=== PATIENT | female | born 1970 | race African-American/Black ===

== ENCOUNTER 2022-01-25 16:58 | Inpatient (IN) | payer MEDICARE ==
[~2022-01-25] VITALS: Ht 177.8 cm; Wt 117.1 kg
[2022-01-25 18:26] LABS: ARTERIAL BLD GAS O2 SATURATION 90.7 % (92-100); ARTERIAL BLD GAS TCO2 CT 24.2; ARTERIAL BLOOD GAS BASE EXCESS -2.1 (-2-2); ARTERIAL BLOOD GAS PCO2 40.4 mmHg (35-45); ARTERIAL BLOOD GAS PO2 64.5 mmHg (80-100); ARTERIAL BLOOD GAS pH 7.37 (7.35-7.45)
[2022-01-25 18:28] LABS: BASO # 0.1 K/mm3 (0.0-0.2); BASO % 1.4 % (0.0-2.0); EOS # 0.3 K/mm3 (0.0-0.7); EOS % 4.4 % (0.0-4.0); GRAN # 4.4 K/mm3 (1.4-6.5); LYMPH # 0.5 K/mm3 (1.2-3.4); LYMPH % 8.7 % (20.0-51.0); MEAN CELL VOLUME 88 fl (80.0-100.0); MEAN CORPUSCULAR HGB CONC 30 g/dl (33.0-37.0); MEAN PLATELET VOLUME 10.1 fl (7.4-10.4); MONO # 0.5 K/mm3 (0.1-0.6); MONO % 9.2 % (1.7-9.3); PLATELET COUNT 260 K/mm3 (130-400); RED BLOOD COUNT 2.71 M/mm3 (4.10-5.30); REDCELL DISTRIBUTION WIDTH-CV 22.5 % (11.5-14.5)
[2022-01-25 18:35] LABS: HEMATOCRIT 23.7 % (37.0-47.0); HEMOGLOBIN 7.1 g/dl (12.5-16.0); MEAN CORPUSCULAR HEMOGLOBIN 26 pg (27-31)
[2022-01-25 18:40] LABS: COLLECTION METHOD CLEAN CATCH
[2022-01-25 18:47] LABS: URINE APPEARANCE Clear (CLEAR/HAZY); URINE COLOR Yellow (YELLOW)
[2022-01-25 18:48] LABS: URINE BLOOD 1+ (NEGATIVE); URINE GLUCOSE Negative (NEGATIVE); URINE KETONE Negative (NEGATIVE); URINE NITRATE Negative (NEGATIVE); URINE PROTEIN(semi-quant) Negative (NEGATIVE); URINE UROBILINOGEN 0.2 E.U/dL (0.2-1.0)
[2022-01-25 18:49] LABS: SQUAMOUS EPITHELIAL 0-2 /hpf (0-10); URINE BACTERIA Rare /hpf (NONE SEEN)
[2022-01-25 18:54] LABS: ALBUMIN 1.7 gm/dL (3.5-5.0); BILIRUBIN,TOTAL 0.4 mg/dL (0.2-1.2); CREATININE, serum 2.4 mg/dL (0.57-1.11); POTASSIUM 4.1 mmol/L (3.5-4.5); TOTAL PROTEIN 6.4 gm/dL (6.2-8.1)
[2022-01-25 18:59] LABS: TROPONIN-I 0.018 ng/mL (0.00-0.033)
[2022-01-25 19:07] LABS: INR 1.6 (0.8-3.0)
[2022-01-25 22:17] VITALS: BP 117/80; PULSE 90; TEMP 97.6
[2022-01-25] MEDS ORDERED: TRADJENTA5 MG PO (22:45)
[2022-01-25] MEDS ORDERED: LANTUS100 U/ML SQ (22:45)
[2022-01-25] MEDS ORDERED: XIFAXAN550 MG PO (22:48)
[2022-01-25] MEDS ORDERED: LASIX 40MG TABL40 MG PO (22:49)
[2022-01-25] MEDS ORDERED: REQUIP0.25 MG PO (22:49)
[2022-01-25] MEDS ORDERED: K-DUR20 MEQ PO (22:53)
[2022-01-25] MEDS ORDERED: ZAROXOLYN 2.52.5 MG PO (22:54)
[2022-01-25] MEDS ORDERED: LIPITOR 40MG TA40 MG PO (22:54)
[2022-01-25] MEDS ORDERED: ULTRAM 50MG TAB50 MG PO (22:55)
[2022-01-25] MEDS ORDERED: HUMALOG100 U/ML SQ (22:56)
[2022-01-25] MEDS ORDERED: TYLENOL 500MG500 MG PO (22:57)
[2022-01-25] MEDS ORDERED: CLARITIN 1010 MG/TAB PO (22:59)
[2022-01-25] MEDS ORDERED: FLONASE NASAL S16 GM NS (23:03)
[2022-01-25] MEDS ORDERED: LOVENOX 100100 MG/ML SQ (23:04)
[2022-01-25] MEDS ORDERED: LOVENOX 3030 MG/0.3 SQ (23:05)
[2022-01-25 23:58] LABS: PARTIAL THROMBOPLASTIN TIME 40.3 SECONDS (26.0-37.0)
[2022-01-26 04:07] VITALS: BP 145/67; PULSE 90; TEMP 97.6
--- NOTE | 2022-01-26 04:19 | NUR ---
INITIAL HEP XA CAME BACK AT 1.75. PROVIDER (DEB) NOTIFIED. NO NEW ORDERS.
[2022-01-26 06:36] LABS: BASO # 0.1 K/mm3 (0.0-0.2); BASO % 1.2 % (0.0-2.0); EOS # 0.2 K/mm3 (0.0-0.7); EOS % 4.1 % (0.0-4.0); GRAN # 3.8 K/mm3 (1.4-6.5); GRAN % 74.7 % (42.2-75.2); LYMPH # 0.5 K/mm3 (1.2-3.4); LYMPH % 9.6 % (20.0-51.0); MEAN CELL VOLUME 91 fl (80.0-100.0); MEAN CORPUSCULAR HGB CONC 29 g/dl (33.0-37.0); MEAN PLATELET VOLUME 10.1 fl (7.4-10.4); MONO # 0.5 K/mm3 (0.1-0.6); MONO % 10.2 % (1.7-9.3); PLATELET COUNT 247 K/mm3 (130-400); RED BLOOD COUNT 2.59 M/mm3 (4.10-5.30); REDCELL DISTRIBUTION WIDTH-CV 22.1 % (11.5-14.5)
[2022-01-26 06:51] LABS: CALCIUM 7.8 mg/dL (8.4-10.2); CREATININE, serum 2.36 mg/dL (0.57-1.11)
[2022-01-26 06:54] LABS: HEMATOCRIT 23.5 % (37.0-47.0); HEMOGLOBIN 6.9 g/dl (12.5-16.0); MEAN CORPUSCULAR HEMOGLOBIN 27 pg (27-31)
[2022-01-26 09:16] VITALS: BP 137/74; PULSE 98; TEMP 97.8
[2022-01-26 11:55] VITALS: BP 137/76; PULSE 93; TEMP 97.2
--- NOTE | 2022-01-26 12:13 | NUR ---
PICC cancelled by Nephrology
[2022-01-26 15:01] LABS: PLEURAL FLUID RBC 1000 /mm3 (0-0); PLEURAL FLUID WBC 45 /mm3
[2022-01-26 15:02] LABS: PLEURAL FLUID APPEARANCE CLEAR; PLEURAL FLUID COLOR COLORLESS
--- NOTE | 2022-01-26 15:25 | NUR ---
Workflow Developer contacted Luis at [facility] and faxed clinical updates as patient was admitted from [facility]. Luis advised patient was admitted to their SNF facility for rehab on 01/19/22 from [facility]. Luis advised patient has [employer] despite patient showing up as self pay on the hospital census. KRISTEN updated Case Management and Financial Team via email. Luis advised they would accept back with Gena auth. KRISTEN met with patient to complete initial intake. It was difficult to assess for needs as patient was prepping to go down for a procedure and was anxious and tearful. Patient advised before her hospitalization at [facility], she lived in [place] with her , Nilesh (ph#[phone]). Patient advised her son, Billy is also very supportive. Patient does not have established Advance Directives. Patient would like to return to [facility] for continued rehab. Discharge Plan: [facility] SNF
[2022-01-26 15:43] VITALS: BP 139/68; PULSE 98; TEMP 98.3
[2022-01-26 16:34] LABS: HEMATOCRIT 24.3 % (37.0-47.0)
[2022-01-26 20:59] VITALS: BP 139/79; PULSE 100; TEMP 97.7
[2022-01-26 23:53] VITALS: BP 117/54; PULSE 96; TEMP 97.9
[2022-01-27] VITALS (12 sets, daily range): BP systolic 123–162; BP diastolic 61–101; PULSE 90–102; TEMP 97.6–98.5
--- NOTE | 2022-01-27 01:28 | NUR ---
OCCULT STOOL CAME BACK POSITIVE. NOTIFIED PROVIDER (DEB). ORDERS FOR GI CONSULT (WILL CALL IN THE AM) AND GAVE IV PROTONIX.
--- NOTE | 2022-01-27 06:10 | NUR ---
GI CONSULT CALLED TO DR. RUFF.
[2022-01-27 11:31] LABS: BASO # 0.1 K/mm3 (0.0-0.2); BASO % 0.8 % (0.0-2.0); EOS # 0.1 K/mm3 (0.0-0.7); EOS % 1.1 % (0.0-4.0); GRAN # 8.7 K/mm3 (1.4-6.5); GRAN % 88.6 % (42.2-75.2); LYMPH # 0.4 K/mm3 (1.2-3.4); LYMPH % 4.2 % (20.0-51.0); MEAN CELL VOLUME 88 fl (80.0-100.0); MEAN CORPUSCULAR HGB CONC 30 g/dl (33.0-37.0); MEAN PLATELET VOLUME 10.1 fl (7.4-10.4); MONO # 0.5 K/mm3 (0.1-0.6); MONO % 4.9 % (1.7-9.3); PLATELET COUNT 227 K/mm3 (130-400); RED BLOOD COUNT 2.49 M/mm3 (4.10-5.30); REDCELL DISTRIBUTION WIDTH-CV 22.2 % (11.5-14.5)
[2022-01-27 11:35] LABS: HEMOGLOBIN 6.5 g/dl (12.5-16.0); MEAN CORPUSCULAR HEMOGLOBIN 26 pg (27-31)
[2022-01-27 11:48] LABS: CALCIUM 7.7 mg/dL (8.4-10.2); CREATININE, serum 2.36 mg/dL (0.57-1.11); PHOSPHOROUS 5.3 mg/dL (2.3-4.7)
--- NOTE | 2022-01-27 13:05 | NUR ---
Dining Services Director faxed clinical updates to Luis at [facility]. KRISTEN then faxed clinicals to [facility] to start prior authorization request for SNF. KRISTEN contacted patient's , Nilesh who advised he wants patient to continue to get stronger so she can come home. Nilesh is in agreement with discharge plan to [facility] SNF.
--- NOTE | 2022-01-27 13:40 | NUR ---
Special Officer spoke with [facility] about discharge planning. Patient is not medically ready for discharge so authorization request was cancelled. SW to resubmit when closer to discharge.
[2022-01-27 13:41] LABS: PLEURAL FLUID RBC 0 /mm3 (0-0); PLEURAL FLUID WBC 137 /mm3
[2022-01-27 13:47] LABS: PLEURAL FLUID APPEARANCE CLEAR; PLEURAL FLUID COLOR COLORLESS
[2022-01-28] VITALS (10 sets, daily range): BP systolic 112–159; BP diastolic 54–81; PULSE 77–94; TEMP 97.5–98.7
--- NOTE | 2022-01-28 05:47 | NUR ---
PATIENT RESTED QUIETLY THIS SHIFT. PATIENT RECEIVED PRN ULTRAM AND TYLENOL FOR COMPLAINTS OF BACK AND NECK PAIN. PATIENT REPORTED THESE MEDICATIONS DID NOT HELP HER PAIN AND PATIENT STARTED ON PRN MORPHINE. PATIENT APPEARED TO REST MORE COMFORTABLY AFTER MORPHINE. PATIENT REMAINED ON ROOM AIR.
--- NOTE | 2022-01-28 10:45 | NUR ---
Print Decorator contacted Luis at [facility] and faxed clinical updates. KRISTEN collaborated with Hospitalist who advised patient is not near [place] at this time and could possibly be here through the weekend. KRISTEN will sumbit for auth closer to [place].
[2022-01-28 13:44] LABS: BASO # 0.1 K/mm3 (0.0-0.2); BASO % 1.1 % (0.0-2.0); EOS # 0.2 K/mm3 (0.0-0.7); EOS % 3.5 % (0.0-4.0); GRAN # 4.5 K/mm3 (1.4-6.5); GRAN % 81.7 % (42.2-75.2); LYMPH # 0.3 K/mm3 (1.2-3.4); MEAN CELL VOLUME 91 fl (80.0-100.0); MEAN CORPUSCULAR HGB CONC 29 g/dl (33.0-37.0); MEAN PLATELET VOLUME 9.7 fl (7.4-10.4); MONO # 0.4 K/mm3 (0.1-0.6); MONO % 7.3 % (1.7-9.3); PLATELET COUNT 213 K/mm3 (130-400); RED BLOOD COUNT 2.51 M/mm3 (4.10-5.30); REDCELL DISTRIBUTION WIDTH-CV 22.5 % (11.5-14.5)
[2022-01-28 13:45] LABS: INR 1.1 (0.8-3.0); PROTHROMBIN TIME 13.1 SECONDS (9.7-12.8)
[2022-01-28 13:46] LABS: HEMATOCRIT 22.8 % (37.0-47.0); MEAN CORPUSCULAR HEMOGLOBIN 26 pg (27-31)
[2022-01-28 13:48] LABS: HEMOGLOBIN 6.6 g/dl (12.5-16.0)
--- NOTE | 2022-01-28 13:55 | NUR ---
Primary nurse was assisted with [phone] patient care by [facility] [employer] student Kimberlee Mc and [employer] instructor Carol BHAGAT RN
[2022-01-28 13:56] LABS: ALBUMIN 1.5 gm/dL (3.5-5.0); BILIRUBIN,TOTAL 0.4 mg/dL (0.2-1.2); CALCIUM 7.6 mg/dL (8.4-10.2); CREATININE, serum 2.64 mg/dL (0.57-1.11); POTASSIUM 4.1 mmol/L (3.5-4.5); TOTAL PROTEIN 5.6 gm/dL (6.2-8.1)
[2022-01-29] VITALS (11 sets, daily range): BP systolic 111–159; BP diastolic 54–97; PULSE 80–89; TEMP 97–98.3
--- NOTE | 2022-01-29 06:04 | NUR ---
PATIENT RESTED QUIETLY THIS SHIFT. PATIENT RECEIVED PRN MORPHINE X1 FOR BACK PAIN WHICH PATIENT REPORTED EFFECTIVE. PATIENT NPO AT MIDNIGHT AND CHEERFUL THIS SHIFT. PATIENT PULLED OUT IV, ATTEMPTED TO RESTART X2 AND UNSUCCESSFUL. NOTIFIED CHARGE NURSE WHO WILL PUT IN REQUEST FOR PATIENT TO BE EVALUATED BY IV TEAM.
[2022-01-29 06:44] LABS: BASO # 0.1 K/mm3 (0.0-0.2); BASO % 1.2 % (0.0-2.0); EOS # 0.3 K/mm3 (0.0-0.7); EOS % 5.2 % (0.0-4.0); GRAN # 3.9 K/mm3 (1.4-6.5); GRAN % 75.9 % (42.2-75.2); LYMPH # 0.4 K/mm3 (1.2-3.4); LYMPH % 7.2 % (20.0-51.0); MEAN CELL VOLUME 91 fl (80.0-100.0); MEAN CORPUSCULAR HGB CONC 29 g/dl (33.0-37.0); MEAN PLATELET VOLUME 9.6 fl (7.4-10.4); MONO # 0.5 K/mm3 (0.1-0.6); MONO % 10.1 % (1.7-9.3); PLATELET COUNT 215 K/mm3 (130-400); RED BLOOD COUNT 2.78 M/mm3 (4.10-5.30); REDCELL DISTRIBUTION WIDTH-CV 21.5 % (11.5-14.5)
[2022-01-29 06:48] LABS: CALCIUM 7.8 mg/dL (8.4-10.2); CREATININE, serum 2.39 mg/dL (0.57-1.11); POTASSIUM 3.9 mmol/L (3.5-4.5)
[2022-01-29 06:49] LABS: HEMATOCRIT 25.4 % (37.0-47.0); HEMOGLOBIN 7.4 g/dl (12.5-16.0); MEAN CORPUSCULAR HEMOGLOBIN 27 pg (27-31)
--- NOTE | 2022-01-29 08:00 | NUR ---
Pt awake in bed. Morning medications held this morning as pt is NPO for EGD procedure today. Shift assessment completed. O2 on 1L per NC. Telemetry on. R hemo cath intact; no edema or redness. IVF infusing NS @5mL on L AC; intact. No edema or redness. Gonzalez cath intact. BLE present with reddened/blanchable heels; boots in place. Pt denies having any pain at this time. Call light within reach.
--- NOTE | 2022-01-29 11:11 | NUR ---
Clinical Research Management Associate faxed clinical updates to [facility].
--- NOTE | 2022-01-29 13:34 | NUR ---
Primary nurse was assisted with [phone] patient care by [employer] student Kimberlee Mc and [employer] instructor Carol BHAGAT RN.
--- NOTE | 2022-01-29 13:59 | NUR ---
PT ARRIVED BACK ON UNIT AT THIS TIME. STARTED IN POST OP VITALS. UPDATED ON POC. AT BEDSIDE. BUMEX GTT RESTARTED. WILL CONTINUE TO MONITOR.
[2022-01-29 19:45] LABS: HEPATITIS B SURFACE ANTIBODY <2.0 (()); HEPATITIS B SURFACE ANTIGEN Negative (Negative); HEPATITIS C VIRUS ANTIBODY Negative (Negative)
--- NOTE | 2022-01-29 20:00 | NUR ---
Pt lying down in bed. Shift assessment completed. Alert and partially oriented. VSS. RIJ dyalisis catheter in place. Boots on bilateral lower extremities. Left forearm peripheral line CDI; fluids running at 5ml/hr. Folley catheter for accurate I/O. 1500 fluid restriction. Call light within reach.
[2022-01-29 20:55] LABS: HEMATOCRIT 24.2 % (37.0-47.0); HEMOGLOBIN 7.2 g/dl (12.5-16.0)
[2022-01-30 00:22] VITALS: BP 126/61; PULSE 82; TEMP 97.7
[2022-01-30 02:14] VITALS: BP 144/89; PULSE 85
[2022-01-30 05:05] VITALS: BP 150/70; PULSE 84; TEMP 97.5
--- NOTE | 2022-01-30 06:13 | NUR ---
IV to left AC fell out during the night. New one started to left forearm. IV fell out again a few hours later. New one placed to left AC. Continues on Bumex drip per orders.
[2022-01-30 07:38] VITALS: BP 143/84; PULSE 83; TEMP 97.4
[2022-01-30 10:40] LABS: BASO # 0.1 K/mm3 (0.0-0.2); BASO % 1.8 % (0.0-2.0); EOS # 0.2 K/mm3 (0.0-0.7); EOS % 5.4 % (0.0-4.0); GRAN # 3.4 K/mm3 (1.4-6.5); LYMPH # 0.3 K/mm3 (1.2-3.4); LYMPH % 6.7 % (20.0-51.0); MEAN CELL VOLUME 90 fl (80.0-100.0); MEAN CORPUSCULAR HGB CONC 29 g/dl (33.0-37.0); MEAN PLATELET VOLUME 9.7 fl (7.4-10.4); MONO # 0.4 K/mm3 (0.1-0.6); MONO % 9.9 % (1.7-9.3); PLATELET COUNT 180 K/mm3 (130-400); RED BLOOD COUNT 2.65 M/mm3 (4.10-5.30); REDCELL DISTRIBUTION WIDTH-CV 21.9 % (11.5-14.5)
[2022-01-30 10:41] LABS: HEMATOCRIT 23.8 % (37.0-47.0); MEAN CORPUSCULAR HEMOGLOBIN 26 pg (27-31)
--- NOTE | 2022-01-30 10:44 | NUR ---
Shift assessment preformed. Phoslo and Insulin given as orderd. Remainder of medications held due to dialysis. PRN pain medication given for aching back pain rated a 6/10. Bumex gtt running as ordered. VSS. Patient Alert, but only partially oriented. Patient denies any further pain, discomfort, SOA, or further needs at this time. Gonzalez catheter in place, securment device in use, no kinks in tubing. Call light in reach. Fall precautions in place.
[2022-01-30 10:53] LABS: CALCIUM 7.9 mg/dL (8.4-10.2); CREATININE, serum 2.15 mg/dL (0.57-1.11); POTASSIUM 3.9 mmol/L (3.5-4.5)
--- NOTE | 2022-01-30 12:48 | NUR ---
Porfirio notified of Hgb of 7. Instructed to continue to monitor and report if Hgb falls under 6.
--- NOTE | 2022-01-30 13:37 | NUR ---
Metal Smelter rounds: Metal Smelter visit attempted. No Patient in room. Belongings in room were partially packed into white plastic bags.
[2022-01-30 15:54] VITALS: BP 150/88; PULSE 85; TEMP 97.7
--- NOTE | 2022-01-30 16:53 | NUR ---
Patient has had an ok day. Patient is drowsy after dialysis treatment. Patient remains only partially oriented. VSS. Bumex running as ordered. PRN tylenol given once this shift for generalized "aches and pains". Patient denies any further pain, discomfort, SOA, or further needs at this time. Call light in reach. Fall precautions in place. Gonzalez catheter in place, securement device in use, no kinks in tubing.
[2022-01-30 19:02] LABS: HEMATOCRIT 24.3 % (37.0-47.0); HEMOGLOBIN 7.2 g/dl (12.5-16.0)
--- NOTE | 2022-01-30 20:00 | NUR ---
Pt lying down in bed with eyes open. Arousable but disoriented. Pt looks very confused and takes longer time than normal to answer questions. VSS. Pt got repositioned on her right side. LAC peripheral line CDI. Fluids running on. Will continue monitoring. Call light within reach.
[2022-01-30 20:27] VITALS: BP 136/70; PULSE 83; TEMP 98
--- NOTE | 2022-01-30 21:01 | NUR ---
Patient's BS was 80. Given nutritional supplement in room as requested. Continues on Bumex drip per orders.
[2022-01-31] VITALS (7 sets, daily range): BP systolic 129–149; BP diastolic 61–84; PULSE 89–98; TEMP 97.6–98.6
[2022-01-31 06:32] LABS: BASO # 0.1 K/mm3 (0.0-0.2); BASO % 1.6 % (0.0-2.0); EOS # 0.2 K/mm3 (0.0-0.7); EOS % 4.9 % (0.0-4.0); GRAN # 3.3 K/mm3 (1.4-6.5); GRAN % 73.1 % (42.2-75.2); LYMPH # 0.4 K/mm3 (1.2-3.4); MEAN CELL VOLUME 89 fl (80.0-100.0); MEAN CORPUSCULAR HGB CONC 30 g/dl (33.0-37.0); MEAN PLATELET VOLUME 9.7 fl (7.4-10.4); MONO # 0.5 K/mm3 (0.1-0.6); PLATELET COUNT 181 K/mm3 (130-400); RED BLOOD COUNT 2.72 M/mm3 (4.10-5.30); REDCELL DISTRIBUTION WIDTH-CV 21.8 % (11.5-14.5)
[2022-01-31 06:33] LABS: HEMATOCRIT 24.2 % (37.0-47.0); HEMOGLOBIN 7.3 g/dl (12.5-16.0); MEAN CORPUSCULAR HEMOGLOBIN 27 pg (27-31)
[2022-01-31 07:01] LABS: CREATININE, serum 1.64 mg/dL (0.57-1.11); POTASSIUM 4.3 mmol/L (3.5-4.5)
[2022-01-31 10:19] LABS: ARTERIAL BLD GAS O2 SATURATION 93.3 % (92-100); ARTERIAL BLD GAS TCO2 CT 28.8; ARTERIAL BLOOD GAS BASE EXCESS 3.6 (-2-2); ARTERIAL BLOOD GAS HCO3 27.6 meq/L (22-26); ARTERIAL BLOOD GAS PCO2 39.1 mmHg (35-45); ARTERIAL BLOOD GAS PO2 67.6 mmHg (80-100); ARTERIAL BLOOD GAS pH 7.47 (7.35-7.45)
--- NOTE | 2022-01-31 10:21 | NUR ---
Shift assessment preformed. Scheduled medications given. VSS. Upon assessment of mental status, patient was lethargic and only able to tell me her first name. When asked if patient knew where she was, patient again answered with her name. Patient has generalized weakness and was unable to feed herself or follow directions. Dr. Monroy notified of this decline in mental status. Verbal order recieved for Head CT, ABG, and Ammonia level. Orders placed. Patient is currenly resting in bed. No s/s of pain or discomfort at this time. Respirations even and unlabored. Gonzalez cather in place, no kinks in tubing, securment device in use. Call light in reach. Fall precautions in place.
--- NOTE | 2022-01-31 20:00 | NUR ---
Pt lying on her back. VSS Not able to answer question during shift assessment. Pt got transferred to pressure reduction, air matress bed. No IV access at this moment, manager community aware. Pt didn't have much appetite at this moment. Nephro nutritional drink offereed and pt drank 30% of it. Pericare offered due to incontinence episode of BM at the time of assessment. Saccral ulcer dry; mepilex placed on. fall precautions remain in place. [address] remains in [address]. Will continue monitor. Call light within reach.
--- NOTE | 2022-01-31 20:30 | NUR ---
Pt IV access on Left wrist. Pt looks restless and upset. Unable to respond the main source of disconfort. During med administration pt received cellphone calls. Was able to verbalize one word answers and started falling asleep in the middle of the conversation. Call light within reach.
[2022-02-01 04:03] VITALS: BP 163/68; PULSE 90; TEMP 97.7
[2022-02-01 04:36] LABS: COLLECTION METHOD IN
[2022-02-01 04:53] LABS: MUCOUS Present (NOT PRESENT); SQUAMOUS EPITHELIAL 0-2 /hpf (0-10); URINE APPEARANCE Hazy (CLEAR/HAZY); URINE BACTERIA Rare /hpf (NONE SEEN); URINE BLOOD 3+ (NEGATIVE); URINE COLOR Yellow (YELLOW); URINE GLUCOSE Negative (NEGATIVE); URINE KETONE TRACE (NEGATIVE); URINE NITRATE Negative (NEGATIVE); URINE PROTEIN(semi-quant) 1+ (NEGATIVE); URINE RBC >50 /hpf (0-2); URINE UROBILINOGEN 0.2 E.U/dL (0.2-1.0)
--- NOTE | 2022-02-01 06:00 | NUR ---
Pt needed several times to get repositioned in bed since she keeps trying to move both legs out of the bed and left them hanging on the edge. X-ray team working with the pt at this moment. Pt responding more to verbal commands. Call light within reach.
[2022-02-01 06:26] LABS: BASO # 0.1 K/mm3 (0.0-0.2); BASO % 1.6 % (0.0-2.0); EOS # 0.2 K/mm3 (0.0-0.7); EOS % 4.7 % (0.0-4.0); GRAN # 3.8 K/mm3 (1.4-6.5); GRAN % 73.9 % (42.2-75.2); LYMPH # 0.5 K/mm3 (1.2-3.4); LYMPH % 9.5 % (20.0-51.0); MEAN CELL VOLUME 89 fl (80.0-100.0); MEAN CORPUSCULAR HGB CONC 29 g/dl (33.0-37.0); MEAN PLATELET VOLUME 9.8 fl (7.4-10.4); MONO # 0.5 K/mm3 (0.1-0.6); MONO % 9.9 % (1.7-9.3); PLATELET COUNT 172 K/mm3 (130-400); RED BLOOD COUNT 2.79 M/mm3 (4.10-5.30); REDCELL DISTRIBUTION WIDTH-CV 21.9 % (11.5-14.5)
[2022-02-01 06:28] LABS: HEMATOCRIT 24.8 % (37.0-47.0); HEMOGLOBIN 7.3 g/dl (12.5-16.0); MEAN CORPUSCULAR HEMOGLOBIN 26 pg (27-31)
[2022-02-01 06:40] LABS: CREATININE, serum 1.99 mg/dL (0.57-1.11); POTASSIUM 4.3 mmol/L (3.5-4.5)
[2022-02-01 07:28] LABS: ARTERIAL BLD GAS O2 SATURATION 90.4 % (92-100); ARTERIAL BLD GAS TCO2 CT 27.7; ARTERIAL BLOOD GAS HCO3 26.5 meq/L (22-26); ARTERIAL BLOOD GAS PCO2 40.6 mmHg (35-45); ARTERIAL BLOOD GAS PO2 62.4 mmHg (80-100); ARTERIAL BLOOD GAS pH 7.43 (7.35-7.45)
[2022-02-01 07:30] VITALS: BP 129/70; PULSE 120; TEMP 97.4
--- NOTE | 2022-02-01 08:00 | NUR ---
PT COUGHING UP SPUTUM UPON ARRIVAL TO ROOM, STATING SHE FELT HOT AND SHE COULD NOT BREATH. WE SAT PT UP ON EDGE OF BED AND OBTAINED VS. OXYGEN SATURATION WAS AT 71%, PT PLACED ON 3L O2 VIA NC, RT NOTIFIED AND ARRIVED TO OBTAIN ABG'S AND EKG. SIMONA WRAY NOTIFIED. PT APPEARED VERY PANICED AND WAS COUGHING UP COPIOUS AMOUNTS OF CLEAR SPUTUM. PT ORIENTED AT THIS TIME AND REQUESTING WE CALL HER AND SISTER. OXYGEN SAT CAME UP TO 93% ON 3L O2. PT REPOSITIONED BACK INTO LAYING DOWN POSITION. PT BEGAN TO RELAX AND RESPIRATORY RATE AND WORK OF BREATHING IMPROVED. WE ESCORTED PT DOWN TO DIALYSIS AT 0830.
--- NOTE | 2022-02-01 14:30 | NUR ---
Discontinued portillo catheter per physician orders. Obtained 8mL from balloon; intact.
[2022-02-01 16:00] VITALS: BP 152/86; PULSE 101; TEMP 98.2
--- NOTE | 2022-02-01 16:29 | NUR ---
Sales Operations contacted Luis at [facility] and advised patient not ready for discharge. KRISTEN advised patient to have ST eval and MRI. KRISTEN provided chair time to Luis, MWF 1600. Luis isn't sure this time will work but will update KRISTEN howie. KRISTEN did not submit for SNF auth today as patient is not medically stable for discharge.
[2022-02-01 19:37] VITALS: BP 142/67; PULSE 100; TEMP 98.4
--- NOTE | 2022-02-01 21:53 | NUR ---
Patient assessed around 1930. Denies having pain and discomfort. Patient was sitting up on side of bed eatting supper at time of assesesment. On room air. LS CTA in upper lobes, diminished in lower. Patient tearful that she can not get ahold of son, but did talk to someone else on the phone for short period of time. Voices no questions, needs, or concerns at this time. In bed with call light within reach at this time.
[2022-02-01 23:23] VITALS: BP 151/72; PULSE 104; TEMP 97.9
[2022-02-02 04:07] VITALS: BP 142/68; PULSE 97; TEMP 97.8
--- NOTE | 2022-02-02 05:40 | NUR ---
Patient awake most of shift. Tearful and upset about not being able to get in touch with and son. Patient sat on side of bed for a while as requested. Patient assisted to lying position in bed around 2345 after using bedside commode. Patient was able to void. Urine sample not sent to lab due to patient also having a bowel movement. Around 0400, patient had turned herself in the bed to where her feet were at the head of the bed, and her head was by the foot of the bed. Patient repositioned in bed. Patient took dressing to HD catheter off. Redressed. Assisted patient to commode again around 0500. Unable to void. Bladder scanned patient with a result of 230. In bed with call light within reach. Bed alarm on. Voices no questions, needs, or concerns at this time.
--- NOTE | 2022-02-02 07:08 | NUR ---
BEDSIDE REPORT DONE. PATIENT RESTING IN BED.
[2022-02-02 07:12] LABS: BASO # 0.1 K/mm3 (0.0-0.2); BASO % 1.2 % (0.0-2.0); EOS # 0.2 K/mm3 (0.0-0.7); GRAN # 4.7 K/mm3 (1.4-6.5); GRAN % 81.1 % (42.2-75.2); LYMPH # 0.3 K/mm3 (1.2-3.4); LYMPH % 5.7 % (20.0-51.0); MEAN CELL VOLUME 89 fl (80.0-100.0); MEAN CORPUSCULAR HGB CONC 30 g/dl (33.0-37.0); MEAN PLATELET VOLUME 10.5 fl (7.4-10.4); MONO # 0.5 K/mm3 (0.1-0.6); MONO % 7.8 % (1.7-9.3); PLATELET COUNT 154 K/mm3 (130-400); RED BLOOD COUNT 2.73 M/mm3 (4.10-5.30); REDCELL DISTRIBUTION WIDTH-CV 21.3 % (11.5-14.5)
[2022-02-02 07:19] LABS: HEMATOCRIT 24.3 % (37.0-47.0); HEMOGLOBIN 7.2 g/dl (12.5-16.0); MEAN CORPUSCULAR HEMOGLOBIN 26 pg (27-31)
[2022-02-02 07:27] VITALS: BP 144/91; PULSE 100; TEMP 98.4
[2022-02-02 07:28] LABS: CALCIUM 7.9 mg/dL (8.4-10.2); CREATININE, serum 1.55 mg/dL (0.57-1.11); POTASSIUM 4.1 mmol/L (3.5-4.5)
--- NOTE | 2022-02-02 10:15 | NUR ---
ASSESSMENT DONE ORDER. PATIENT IS ALERT X 3 TODAY. ABLE TO ANSWER QUESTION. ABLE TO SIT UP AT EDGE OF BED . PATIENT LUNG CLEAR AT THIS TIME. BOWEL SOUND ACTIVE IN ALL 4QUADS. PATIENT HAS A DIAYLSIS PORT ON RIGHT UPPER CHEST AND IV ON RIGHT ARM. PATIENT ABLE TO TAKE MEDIATION WITH OUT ANY ISSUE. ATE ABOUT 100% OF HER BREAKFAST. EDEMA (TIGHT ON LOWER EXTRMEITES)
[2022-02-02 11:30] VITALS: BP 129/75; PULSE 97; TEMP 98.1
--- NOTE | 2022-02-02 14:21 | NUR ---
Soccer Coach faxed clinical updates to Luis at [facility].
[2022-02-02 15:22] VITALS: BP 125/65; PULSE 93; TEMP 98
[2022-02-02 16:01] LABS: COLLECTION METHOD CATHETER
[2022-02-02 16:08] LABS: URINE APPEARANCE Turbid (CLEAR/HAZY); URINE COLOR OTHER (YELLOW)
[2022-02-02 16:09] LABS: URINE BLOOD 3+ (NEGATIVE); URINE GLUCOSE Negative (NEGATIVE); URINE KETONE 1+ (NEGATIVE); URINE NITRATE Negative (NEGATIVE); URINE PROTEIN(semi-quant) 1+ (NEGATIVE); URINE UROBILINOGEN 0.2 E.U/dL (0.2-1.0)
[2022-02-02 16:22] LABS: AMORPHOUS CRYSTAL Present (NOT PRESENT); MUCOUS Present (NOT PRESENT); URINE BACTERIA Rare /hpf (NONE SEEN); URINE RBC >50 /hpf (0-2)
[2022-02-02 20:56] VITALS: BP 118/52; PULSE 92; TEMP 98.1
--- NOTE | 2022-02-02 21:26 | NUR ---
Patient assessed around 1999. Alert and oriented with confusion. Patient seems to be in a good mood: smiling, laughing, making jokes. No tearfulness noted so far this shift. Denies pain and discomfort. Peripheral INT to left wrist. HD cath to right chest. Edema continues, but has decreased. Continues on IV ABX per orders. Patient voices no questions, needs, or concerns at this time. In bed with call light within reach. High fall risk precautions in place. Bed alarm on.
[2022-02-03] VITALS (10 sets, daily range): BP systolic 106–140; BP diastolic 48–69; PULSE 88–102; TEMP 97.5–98.5
--- NOTE | 2022-02-03 05:47 | NUR ---
Patient received PRN Acetaminophen for discomfort to bilateral shoulders during the night. Has voiced no further questions, needs, or concerns at this time. Awake most of night, talking on phone. No tearfulness noted this shift. in bed wtih call light within reach. Assisted with repositioning during the night. Bed alarm on.
--- NOTE | 2022-02-03 09:19 | NUR ---
Patient down to dialysis.
[2022-02-03 10:06] LABS: BASO # 0.1 K/mm3 (0.0-0.2); BASO % 1.1 % (0.0-2.0); EOS # 0.3 K/mm3 (0.0-0.7); EOS % 5.4 % (0.0-4.0); GRAN # 4.1 K/mm3 (1.4-6.5); GRAN % 77.1 % (42.2-75.2); LYMPH # 0.4 K/mm3 (1.2-3.4); LYMPH % 6.6 % (20.0-51.0); MEAN CELL VOLUME 91 fl (80.0-100.0); MEAN CORPUSCULAR HGB CONC 29 g/dl (33.0-37.0); MEAN PLATELET VOLUME 11.1 fl (7.4-10.4); MONO # 0.5 K/mm3 (0.1-0.6); MONO % 9.4 % (1.7-9.3); PLATELET COUNT 152 K/mm3 (130-400); RED BLOOD COUNT 2.54 M/mm3 (4.10-5.30)
[2022-02-03 10:09] LABS: HEMATOCRIT 23.2 % (37.0-47.0); HEMOGLOBIN 6.8 g/dl (12.5-16.0); MEAN CORPUSCULAR HEMOGLOBIN 27 pg (27-31)
[2022-02-03 10:13] LABS: INR 2.5 (0.8-3.0); PROTHROMBIN TIME 28.4 SECONDS (9.7-12.8)
[2022-02-03 10:40] LABS: CALCIUM 7.5 mg/dL (8.4-10.2); CREATININE, serum 1.99 mg/dL (0.57-1.11); POTASSIUM 4.5 mmol/L (3.5-4.5)
--- NOTE | 2022-02-03 11:09 | NUR ---
Warfarin Follow-up Pharmacy Note Current regimen: Warfarin 5 mg s/p x1 dose on 02/02/22 LABS: INR 2.5 (increased from 1.1 on 01/28/22) Changes in therapy: Will decrease Warfarin to 1 mg tonight. Pharmacy will continue to closely monitor daily INR levels.
--- NOTE | 2022-02-03 13:53 | NUR ---
Skiagrapher faxed clinical updates to [facility]. SW also faxed clinicals to [facility] to submit for insurance authorization for SNF. Discharge Plan: [facility] pending auth
[2022-02-03 15:35] LABS: HEMATOCRIT 25.8 % (37.0-47.0); HEMOGLOBIN 7.5 g/dl (12.5-16.0)
--- NOTE | 2022-02-03 17:18 | NUR ---
Patient has had an uneventful day. VSS. Patient Alert and partially oriented. Not able to remember the year. PRN tylenol given once this shift for "tailbone" pain rated a 4/10. Patient states this has helped alleviate the pain. Patient given one unit of blood during dialysis for HGB of 6.8. Tolerated transfusion well. Patient is currenly resting in bed. at the bedside. Denies any pain, discomfort, SOA, or further needs at this time. Call light in reach. Fall precautions in place.
[2022-02-04] VITALS (7 sets, daily range): BP systolic 116–139; BP diastolic 59–83; PULSE 86–90; TEMP 97.7–98.9
--- NOTE | 2022-02-04 00:23 | NUR ---
Patient assessed around 2139. Denies having pain and discomfort. Patient is alert and oriented, and able to make needs known. Patient voices no questions, needs, or concerns at this time. In bed with call light within reach. Bed alarm on.
--- NOTE | 2022-02-04 05:51 | NUR ---
Patient has denied having pain and discomfort this shift. Voices no questions, needs, or concerns at this time. In bed with call light within reach. High fall risk precautions in place, bed alarm on.
[2022-02-04 06:50] LABS: BASO # 0.1 K/mm3 (0.0-0.2); EOS # 0.3 K/mm3 (0.0-0.7); EOS % 5.6 % (0.0-4.0); GRAN # 3.6 K/mm3 (1.4-6.5); GRAN % 73.2 % (42.2-75.2); LYMPH # 0.4 K/mm3 (1.2-3.4); LYMPH % 8.1 % (20.0-51.0); MEAN CELL VOLUME 92 fl (80.0-100.0); MEAN CORPUSCULAR HGB CONC 29 g/dl (33.0-37.0); MEAN PLATELET VOLUME 11.1 fl (7.4-10.4); MONO # 0.6 K/mm3 (0.1-0.6); MONO % 11.7 % (1.7-9.3); PLATELET COUNT 155 K/mm3 (130-400); REDCELL DISTRIBUTION WIDTH-CV 20.1 % (11.5-14.5)
[2022-02-04 06:55] LABS: INR 1.3 (0.8-3.0); PROTHROMBIN TIME 15.5 SECONDS (9.7-12.8)
[2022-02-04 07:03] LABS: HEMATOCRIT 24.9 % (37.0-47.0); HEMOGLOBIN 7.1 g/dl (12.5-16.0); MEAN CORPUSCULAR HEMOGLOBIN 26 pg (27-31)
[2022-02-04 07:15] LABS: CALCIUM 7.5 mg/dL (8.4-10.2); CREATININE, serum 1.34 mg/dL (0.57-1.11); POTASSIUM 4.4 mmol/L (3.5-4.5)
--- NOTE | 2022-02-04 09:23 | NUR ---
Shift assessment preformed. Scheduled medications given by student nurse under the close supervision of nursing agency manager. VSS. Patient A&O. Patient called this RN into room due to emesis during a coughing fit. Large amount of mucous noted in ememisis. PRN tessalon perles given by student nurse under instruction of this RN. Patient is currenlty resting in bed. Denies any further pain, discomfort SOA, or further needs at this time. Call light in reach. Call light in reach. Fall precations in place.
--- NOTE | 2022-02-04 10:51 | NUR ---
Warfarin Follow-up Pharmacy Note Current regimen: Received Warfarin 1 mg x1 on 02/03/22 LABS: INR 1.3 (02/04) <- 2.5 (02/03) <- 1.1 (01/28) Changes in therapy: Will change Warfarin to 4 mg po qHS starting tonight. Pharmacy will continue to closely monitor daily INR levels.
--- NOTE | 2022-02-04 13:56 | NUR ---
Lianne arnett was assisted with [phone] patient care by [employer] [facility] student Kimberlee Mc and [facility] instructor Carol BHAGAT RN
--- NOTE | 2022-02-04 15:59 | NUR ---
Forging Machine Hand spoke with [facility] and secured SNF authorization for patient. KRISTEN provided auth information to Luis at [facility]. Luis advised they have not been able to secure a chair time with [facility] that works with their transportation, so he faxed patient's clinical information to [facility]. KRISTEN followed up with [facility] and faxed additional requested information. KRISTEN was told by [facility] that all required clinicals have been received and need to be reviewed by their clinician. KRISTEN contacted [facility] and provided the above update. Discharge Plan: [facility] SNF once [facility] chair time is secured
--- NOTE | 2022-02-04 18:39 | NUR ---
Patient has had an uneventful day. VSS. Patient A&O. Denies any pain, discomfort, SOA, or further needs at this time. Call light in reach. Fall precautions in place. Family at the bedside.
--- NOTE | 2022-02-04 23:12 | NUR ---
Patient assessed around 2039. Alert and oriented x 4, and able to make needs known. Denies having pain and discomfort. Peripheral INT to left wrist. Reports occasional cough, but better than this morning. Denies SOB and dyspnea. Patient voices no questions, needs, or concerns at this time. In bed with call light within reach. Bed alarm on.
[2022-02-05] VITALS (10 sets, daily range): BP systolic 90–161; BP diastolic 35–81; PULSE 85–89; TEMP 97–98.6
--- NOTE | 2022-02-05 05:49 | NUR ---
Patient has denied pain and discomfort this shift. Assisted to bedside commode during the night. Voices no questions, needs, or concerns at this time. In bed with call light within reach. High fall risk precautions in place. Bed alarm on.
[2022-02-05 06:56] LABS: MEAN CELL VOLUME 90 fl (80.0-100.0); MEAN CORPUSCULAR HGB CONC 29 g/dl (33.0-37.0); PLATELET COUNT 160 K/mm3 (130-400); RED BLOOD COUNT 2.59 M/mm3 (4.10-5.30); REDCELL DISTRIBUTION WIDTH-CV 20.2 % (11.5-14.5)
[2022-02-05 07:05] LABS: HEMATOCRIT 23.3 % (37.0-47.0); HEMOGLOBIN 6.8 g/dl (12.5-16.0); MEAN CORPUSCULAR HEMOGLOBIN 26 pg (27-31)
--- NOTE | 2022-02-05 07:09 | NUR ---
Attempted to call critical HGB of 6.[address] Macias. No answer. Will attempt at a later time.
[2022-02-05 07:11] LABS: INR 1.5 (0.8-3.0); PROTHROMBIN TIME 17.6 SECONDS (9.7-12.8)
[2022-02-05 07:16] LABS: ALBUMIN 1.7 gm/dL (3.5-5.0); CALCIUM 7.5 mg/dL (8.4-10.2); CREATININE, serum 1.71 mg/dL (0.57-1.11); PHOSPHOROUS 2.4 mg/dL (2.3-4.7); POTASSIUM 4.8 mmol/L (3.5-4.5)
--- NOTE | 2022-02-05 07:16 | NUR ---
CRITICAL HGB OF 6.[address] BERRIOS, WHO READ BACK THE RESULTS.
--- NOTE | 2022-02-05 08:43 | NUR ---
Shift assessment preformed. Scheduled medications given to patient by student nurse under close supervision of Instructor. VSS. Patient A&O. Patient denies any pain, discomfort, SOA, or further needs at this time. Call light in reach. Fall precautions in place.
--- NOTE | 2022-02-05 13:52 | NUR ---
Primary nurse was assisted with [phone] patient care by [employer] [facility] Kimberlee Mc and [employer] instructor Carol BHAGAT RN
[2022-02-05 13:54] LABS: HEMATOCRIT 27.8 % (37.0-47.0); HEMOGLOBIN 8.4 g/dl (12.5-16.0)
--- NOTE | 2022-02-05 14:00 | NUR ---
1 unit of blood transfused during dialysis. Patient tolerated well. Repeat H&H ordered per protocol. Patient returned to room. VSS. Patient A&O. Currently denies any pain, discomfort, SOA, or further needs at this time. Call light in reach. Fall precautions in place.
--- NOTE | 2022-02-05 15:00 | NUR ---
Sparmaker was contacted by [facility] Admissions. Patient has been approved and chair time is MWF 0930. KRISTEN requested [facility] contact Luis at [facility] to verify chair time. KRISTEN spoke with Luis who advised he spoke with [facility] and this chair time works for them. KRISTEN told Luis that per Hospitalist, patient not ready for discharge today and could potentially be here through the weekend depending on her labs. Weekend discharge is still possible depending on patient's progress. KRISTEN contacted [facility] Ventilator Specialist who advised patient's auth is good through the weekend but a new auth would need to be submitted on Tuesday if patient was still here. KRISTEN provided this update to Luis. KRISTEN contacted Meka, Clinical Scallop Dredger at [facility] and provided discharge update. KRISTEN met with patient to provide update. Patient reports while she would have preferred [facility], she is agreeable to [facility] as it it what works for [facility] and she needs the rehab. Discharge Plan: [facility] SNF
--- NOTE | 2022-02-05 15:41 | NUR ---
Report given to [facility].
--- NOTE | 2022-02-06 03:17 | NUR ---
NURSING SHIFT ASSESSMENT COMPLETED. NO S/S OF DISTRESS NOTED. THE PATIENT WAS ABLE TO REPOSITION HERSELF IN BED WITH MINIMAL ASSIST OF 1. THE PATIENT DENED PAIN OR DISCOMFORT. CALL LIGHT, PERSONAL BELONGINGS WITHIN REACH AND BED IN LOWEST POSITION.
[2022-02-06 04:04] VITALS: BP 113/50; PULSE 85; TEMP 97.2
[2022-02-06 06:14] LABS: RETIC # 0.1 M/mm3 (0.02-0.16); RETIC % 3.8 % (0.5-3.52)
[2022-02-06 06:20] LABS: INR 1.8 (0.8-3.0)
[2022-02-06 06:34] LABS: CALCIUM 7.8 mg/dL (8.4-10.2); CREATININE, serum 1.43 mg/dL (0.57-1.11); POTASSIUM 4.7 mmol/L (3.5-4.5)
[2022-02-06 08:20] VITALS: BP 165/84; PULSE 94; TEMP 98.2
[2022-02-06 08:54] LABS: BASO # 0.1 K/mm3 (0.0-0.2); BASO % 1.7 % (0.0-2.0); EOS # 0.3 K/mm3 (0.0-0.7); EOS % 5.7 % (0.0-4.0); GRAN # 3.7 K/mm3 (1.4-6.5); GRAN % 70.4 % (42.2-75.2); LYMPH # 0.5 K/mm3 (1.2-3.4); LYMPH % 9.5 % (20.0-51.0); MEAN CELL VOLUME 89 fl (80.0-100.0); MEAN CORPUSCULAR HGB CONC 30 g/dl (33.0-37.0); MEAN PLATELET VOLUME 11.6 fl (7.4-10.4); MONO # 0.7 K/mm3 (0.1-0.6); MONO % 12.5 % (1.7-9.3); PLATELET COUNT 174 K/mm3 (130-400); REDCELL DISTRIBUTION WIDTH-CV 19.7 % (11.5-14.5)
--- NOTE | 2022-02-06 09:00 | NUR ---
assesment completed, no s/s of distress, pt denies complaints of pain and sob, due prescribed medication given, all well tolarated. pt vss, orient and alertx4.
[2022-02-06 09:07] LABS: HEMOGLOBIN 7.4 g/dl (12.5-16.0); MEAN CORPUSCULAR HEMOGLOBIN 26 pg (27-31)
[2022-02-06 12:00] VITALS: BP 134/66; PULSE 88; TEMP 97.6
--- NOTE | 2022-02-06 12:37 | NUR ---
KRISTEN faxed over updates to Luis @ [employer] 12:37 pm.
[2022-02-06 15:12] VITALS: BP 133/68; PULSE 90; TEMP 97.8
--- NOTE | 2022-02-06 19:44 | NUR ---
THE PATIENT WAS RESTING IN BED WATCHING TV AND DENIED PAIN AND NO S/S OF DISTRESS NOTED. THE SHIFT NURSING ASSESSMENT COMPLETED AT THIS TIME. NO NEEDS EXPRESSED. CALL LIGHT WITHIN REACH WELL OTHER PERSONAL BELONGINGS. BED IN LOWEST POSITION.
[2022-02-06 20:20] VITALS: BP 147/72; PULSE 87; TEMP 98.4
[2022-02-06 23:59] VITALS: BP 124/74; PULSE 92; TEMP 98.4
[2022-02-07 04:24] VITALS: BP 131/56; PULSE 93; TEMP 98
[2022-02-07 06:25] LABS: BASO # 0.1 K/mm3 (0.0-0.2); BASO % 1.1 % (0.0-2.0); EOS # 0.3 K/mm3 (0.0-0.7); GRAN % 76.7 % (42.2-75.2); LYMPH # 0.5 K/mm3 (1.2-3.4); LYMPH % 8.2 % (20.0-51.0); MEAN CELL VOLUME 92 fl (80.0-100.0); MEAN CORPUSCULAR HGB CONC 29 g/dl (33.0-37.0); MEAN PLATELET VOLUME 11.2 fl (7.4-10.4); MONO # 0.6 K/mm3 (0.1-0.6); MONO % 9.8 % (1.7-9.3); PLATELET COUNT 188 K/mm3 (130-400); RED BLOOD COUNT 2.86 M/mm3 (4.10-5.30); REDCELL DISTRIBUTION WIDTH-CV 19.7 % (11.5-14.5)
[2022-02-07 06:31] LABS: HEMATOCRIT 26.2 % (37.0-47.0); HEMOGLOBIN 7.6 g/dl (12.5-16.0); MEAN CORPUSCULAR HEMOGLOBIN 27 pg (27-31)
[2022-02-07 06:36] LABS: INR 1.5 (0.8-3.0); PROTHROMBIN TIME 17.4 SECONDS (9.7-12.8)
[2022-02-07 06:41] LABS: CREATININE, serum 1.75 mg/dL (0.57-1.11); POTASSIUM 4.9 mmol/L (3.5-4.5)
[2022-02-07 07:43] VITALS: BP 154/68; PULSE 87; TEMP 97.8
[2022-02-07] MEDS ORDERED: PHOSLO667 MG PO (10:56)
[2022-02-07] MEDS ORDERED: LOVENOX 100100 MG/ML SQ (10:56)
[2022-02-07] MEDS ORDERED: TESSALON P100 MG/CAP PO (10:57)
[2022-02-07] MEDS ORDERED: MUCINEX DM 30 M1 TE1 PO (10:57)
[2022-02-07] MEDS ORDERED: PROTONIX 40MG T40 MG PO (11:00)
--- NOTE | 2022-02-07 11:27 | NUR ---
KRISTEN faxed DC orders to [facility] at 11:15 am. DC is at 12 PM. SW to fax COVID test once completed.
[2022-02-07 11:39] VITALS: BP 149/78; PULSE 91; TEMP 98.4
--- NOTE | 2022-02-07 12:00 | NUR ---
PT ALERT AND ORIENT ,VS STABLE, ALL DUE MEDICATION S GIVEN. PT DISCHARGED TO FROM THE UNIT TO [facility]IA [facility].IV REMOVED TIP INTACT, DENIES COMPLAINTS, PTDISCHARGE SUMMARY GIVEN TO THE [facility] TRANSPORTING STAFF, REPORT CALLED TO [facility] AND GIVEN TO KRISTI DUBON PRESCRIPTION HARD SCRIPT FAXED TO THE PHARMACY.
--- NOTE | 2022-02-07 12:00 | NUR ---
SW faxed over COVID results to [facility] 12pm
[2022-02-07] MEDS ORDERED: HUMALOG100 U/ML SQ (12:11)
[2022-02-07] MEDS ORDERED: ULTRAM 50MG TAB50 MG PO (12:11)
[2022-02-07] MEDS ORDERED: XIFAXAN550 MG PO (12:11)
[2022-02-07] MEDS ORDERED: FLONASE NASAL S16 GM NS (12:11)
[2022-02-07] MEDS ORDERED: LANTUS100 U/ML SQ (12:11)
[2022-02-07] MEDS ORDERED: TRADJENTA5 MG PO (12:11)
[2022-02-07] MEDS ORDERED: CLARITIN 1010 MG/TAB PO (12:11)
[2022-02-07] MEDS ORDERED: LIPITOR 40MG TA40 MG PO (12:11)
[2022-02-07] MEDS ORDERED: TYLENOL 500MG500 MG PO (12:11)
[2022-02-07] MEDS ORDERED: REQUIP0.25 MG PO (12:11)
[2022-02-07] MEDS ORDERED: K-DUR20 MEQ PO (12:11)
== END 2022-02-07 12:00 | disposition short-term general hospital (02) | DRG 291 ==
LOC: COL.ER 16:58 → MEDICAL 21:55
PROVIDERS: Emergency Medicine; Family Medicine; Internal Medicine; Internal Medicine Gastroenterology; Internal Medicine Nephrology; Nurse Practitioner Primary Care; Physician Assistant; Student in an Organized Health Care Education/Training Program; ADMIT Student in an Organized Health Care Education/Training Program
PROC: 0W993ZX Drainage of Right Pleural Cavity, Percutaneous Approach, Diagnostic (ICD-10-PCS; 2022-01-26)
PROC: 0W9B3ZX Drainage of Left Pleural Cavity, Percutaneous Approach, Diagnostic (ICD-10-PCS; 2022-01-27)
PROC: 02HV33Z Insertion of Infusion Device into Superior Vena Cava, Percutaneous Approach (ICD-10-PCS; 2022-01-27)
PROC: B5181ZA Fluoroscopy of Superior Vena Cava using Low Osmolar Contrast, Guidance (ICD-10-PCS; 2022-01-27)
PROC: 5A1D70Z Performance of Urinary Filtration, Intermittent, Less than 6 Hours Per Day (ICD-10-PCS; 2022-01-28)
PROC: 0DB68ZX Excision of Stomach, Via Natural or Artificial Opening Endoscopic, Diagnostic (ICD-10-PCS; principal; 2022-01-29 12:30)
PROC: 30243N1 Transfusion of Nonautologous Red Blood Cells into Central Vein, Percutaneous Approach (ICD-10-PCS; 2022-02-03)
DX: I13.0 Hypertensive heart and chronic kidney disease with heart failure and stage 1 through stage 4 chronic kidney disease, or unspecified chronic kidney disease (principal); I50.33 Acute on chronic diastolic (congestive) heart failure; J96.00 Acute respiratory failure, unspecified whether with hypoxia or hypercapnia; N18.4 Chronic kidney disease, stage 4 (severe); I69.354 Hemiplegia and hemiparesis following cerebral infarction affecting left non-dominant side; J91.8 Pleural effusion in other conditions classified elsewhere; N17.9 Acute kidney failure, unspecified; E11.22 Type 2 diabetes mellitus with diabetic chronic kidney disease; E11.42 Type 2 diabetes mellitus with diabetic polyneuropathy; I25.10 Atherosclerotic heart disease of native coronary artery without angina pectoris; E66.01 Morbid (severe) obesity due to excess calories; D50.9 Iron deficiency anemia, unspecified; K29.70 Gastritis, unspecified, without bleeding; K21.9 Gastro-esophageal reflux disease without esophagitis; G89.29 Other chronic pain; M54.9 Dorsalgia, unspecified; F32.A Depression, unspecified; F41.9 Anxiety disorder, unspecified; R41.82 Altered mental status, unspecified; E87.5 Hyperkalemia; D63.1 Anemia in chronic kidney disease; Z20.822 Contact with and (suspected) exposure to COVID-19; E11.51 Type 2 diabetes mellitus with diabetic peripheral angiopathy without gangrene; K44.9 Diaphragmatic hernia without obstruction or gangrene; E83.39 Other disorders of phosphorus metabolism; I27.20 Pulmonary hypertension, unspecified; K76.9 Liver disease, unspecified; Z86.718 Personal history of other venous thrombosis and embolism; Z79.01 Long term (current) use of anticoagulants; Z91.041 Radiographic dye allergy status; Z87.891 Personal history of nicotine dependence; Z79.84 Long term (current) use of oral hypoglycemic drugs; Z68.36 Body mass index [BMI] 36.0-36.9, adult
CPT/HCPCS: C1751; C9113; J0690; J0696; J1644; J1650; J1756; J1815; J1940; J2270; J2405; J2704; P9016; Q5105